=== PATIENT | male | born 1960 | race Caucasian/White ===

== ENCOUNTER 2017-02-07 06:55 | Emergency (ER) | payer BC, MEDICARE ==
--- NOTE | 2017-02-07 09:43 | EDM.PDOC ---
ED HPI GENERAL MEDICAL PROBLEM - General Chief Complaint: Neuro Symptoms/Deficits Stated Complaint: STROKE LIKE SYMPTOMS Time Seen by Provider: 02/07/17 07:15 Source of Information: Reports: Patient, Family History Limitations: Reports: No Limitations - History of Present Illness Onset: Today Onset Date: 02/07/17 Onset Time: 06:00 Duration: Constant Location: Reports: Upper Extremity, Left, Lower Extremity, Left Quality: Reports: Other (Weakness and numbness in the left arm and left leg.) Severity: Mild Improves with: Reports: Other (Lying down) Worsens with: Reports: Other (Getting up), Movement Context: Reports: Other (History of Marfan's syndrome, ascending aortic graft and stents in the rest of the aorta and femoral arteries.) Associated Symptoms: Reports: No Other Symptoms Treatments STUDENT OFFICER: Reports: Aspirin - Related Data Allergies Allergy/AdvReac Type Severity Reaction Status Date / Time No Known Allergies Allergy Verified 03/04/14 12:14 Home Meds: Home Meds Metoprolol Tartrate 250 mg PO BID 03/04/14 [History] Acetaminophen [Tylenol Extra Strength] 1,000 mg PO Q4H PRN 02/07/17 [History] Aspirin [Ecotrin] 325 mg PO DAILY 02/07/17 [History] Doxazosin [Cardura] 4 mg PO BID 02/07/17 [History] Hydrochlorothiazide [Hydrochlorothiazide] 25 mg PO BID 02/07/17 [History] Lisinopril [Lisinopril] 40 mg PO BIDMEALS 02/07/17 [History] Minoxidil [Loniten] 10 mg PO BID 02/07/17 [History] amLODIPine Besylate [Amlodipine Besylate] 10 mg PO DAILY 02/07/17 [History] cloNIDine [cloNIDine] 0.3 mg TRDERM WEEKLY 02/07/17 [History] ED ROS GENERAL - Review of Systems Review Of Systems: See Below Constitutional: Reports: Weakness, Other (Loss of balance, numbness and tingling in the left upper and lower extremities.) HEENT: Reports: No Symptoms Respiratory: Reports: No Symptoms Cardiovascular: Reports: Other (Atrial fibrillation.) Endocrine: Reports: No Symptoms GI/Abdominal: Reports: No Symptoms : Reports: No Symptoms Musculoskeletal: Reports: No Symptoms Skin: Reports: No Symptoms Neurological: Reports: Numbness, Tingling, Difficulty Walking, Weakness Psychiatric: Reports: No Symptoms Hematologic/Lymphatic: Reports: No Symptoms Immunologic: Reports: No Symptoms ED EXAM, NEURO - Physical Exam Exam: See Below Exam Limited By: No Limitations General Appearance: Alert, WD/WN, No Apparent Distress Eye Exam: Bilateral Eye: EOMI, Normal Fundi, Normal Inspection, PERRL, Vision Changes (No visual field deficits.) Ears: Normal External Exam, Normal Canal, Hearing Grossly Normal, Normal TMs Nose: Normal Inspection, Normal Mucosa, No Blood Throat/Mouth: Normal Inspection, Normal Lips, Normal Teeth, Normal Gums, Normal Oropharynx, Normal Voice, No Airway Compromise Head Exam: Atraumatic, Normocephalic Neck: Normal Inspection, Supple, Non-Tender, Full Range of Motion Respiratory/Chest: No Respiratory Distress Cardiovascular: Normal Peripheral Pulses, No Edema, No Gallop, No JVD, No Murmur , No Rub, Irregularly Irregular GI/Abdominal: Normal Bowel Sounds, Soft, Non-Tender, No Organomegaly, No Distention, No Abnormal Bruit, No Mass Neurological: Abnormal Gait (Weakness and imbalance in the left arm and leg.), Abnormal Light Touch (Left arm and leg), Straight Leg Raise (L) (Has difficulty with left straight leg raise), Difficulty Walking DTR: 2+: Patella (R), Patella (L) Back Exam: Normal Inspection, Full Range of Motion, NT Extremities: Normal Inspection, Normal Range of Motion, Non-Tender, No Pedal Edema, Normal Capillary Refill Psychiatric: Normal Affect, Normal Mood Skin Exam: Warm, Dry, Intact, Normal Color, No Rash EKG INTERPRETATION EKG Date: 02/07/17 Rhythm: A-Fib [place]: Normal P-Wave: Present QRS: Normal ST-T: Normal QT: Normal Comparison: No Change Course - Vital Signs Text/Narrative:: Patient had an uneventful ED course. His condition did not change. His CT showed no acute stroke but he had a 37 mm left temporal lobe lesion of unknown significance. He needs further evaluation in [place] with possible CT angiogram and further neuro evaluation and possible interventional radiologic treatment. Dr. Gifford has accepted him in transport to [facility] and he will be transported by [employer]. - Orders/Labs/Meds Orders: Active Orders 24 hr Category Date Time Status EKG Documentation Completion [RC] ASDIRECTED Care 02/07/17 07:18 Active Head wo Cont [CT] Stat Exams 02/07/17 07:17 Taken Labs: Laboratory Tests 02/07/17 02/07/17 02/07/17 Range/Units 07:30 07:30 07:30 WBC 5.7 (4.0-11.0) K/uL RBC 3.92 L (4.50-6.50) M/uL Hgb 11.7 L (13.0-18.0) g/dL Hct 34.2 L (40.0-54.0) % MCV 87 (76-96) fL MCH 29.8 (27.0-32.0) pg MCHC 34.2 (31.0-35.0) g/dL RDW 13.2 (11.0-16.0) % Plt Count 173 (150-400) K/uL MPV 10.6 H (6.0-10.0) fL Neut % (Auto) 75.3 H (45.0-70.0) % Lymph % (Auto) 14.1 L (20.0-40.0) % [place] % (Auto) 6.2 (3.0-10.0) % Eos % (Auto) 4.2 (1.0-5.0) % Baso % (Auto) 0.2 (0.0-0.5) % Neut # (Auto) 4.29 (2.00-7.50) K/uL Lymph # (Auto) 0.80 L (1.50-4.00) K/uL [place] # (Auto) 0.35 (0.20-0.80) K/uL Eos # (Auto) 0.24 (0.04-0.40) K/uL Baso # (Auto) 0.01 L (0.02-0.10) K/uL PT 10.2 (9.0-11.5) sec INR 1.0 (1.0-3.5) Sodium 141 (136-145) mmol/L Potassium 4.3 (3.5-5.1) mmol/L Chloride 106 (98-107) mmol/L Carbon Dioxide 24.7 (21.0-32.0) mmol/L Anion Gap 14.6 (5.0-15.0) mmol/L BUN 33 H (8-26) mg/dL Creatinine 1.76 H (0.70-1.30) mg/dL Est Cr Clr Drug Dosing TNP Estimated GFR (MDRD) 40 L (>60) MLS/MIN BUN/Creatinine Ratio 18.8 (6-25) Glucose 112 H (74-100) mg/dL Calcium 8.8 (8.5-10.1) mg/dL Total Bilirubin 0.5 (0.0-1.0) mg/dL AST 10 L (15-37) U/L ALT 28 (12-78) U/L Alkaline Phosphatase 81 (46-116) U/L Troponin I < 0.017 (0.000-0.060) ng/mL Total Protein 7.9 (6.4-8.2) g/dL Albumin 3.9 (3.4-5.0) g/dL Globulin 4.0 (2.2-4.2) g/dL Albumin/Globulin Ratio 1.0 (0.8-2.0) Departure - Departure Time of Disposition: 09:50 Disposition: DC/Tfer to Acute Hospital 02 Condition: Fair Clinical Impression: CVA (cerebral vascular accident), TIA (transient ischemic attack) - Discharge Information Referrals: PCP,None [Primary Care Provider] - - My Orders Last 24 Hours: My Active Orders 02/07/17 07:17 Head wo Cont [CT] Stat 02/07/17 07:18 EKG Documentation Completion [RC] ASDIRECTED - Assessment/Plan Last 24 Hours: My Active Orders 02/07/17 07:17 Head wo Cont [CT] Stat 02/07/17 07:18 EKG Documentation Completion [RC] ASDIRECTED
--- NOTE | 2017-02-07 10:28 | CT ---
DATE OF SERVICE: 02/07/17 CLINICAL DATA: Dizziness and Loss of Balance UNENHANCED BRAIN CT Multislice acquisition through the brain without IV contrast was performed. No priors. There is diffuse cerebral atrophy. There is encephalomalacia involving the left temporal lobe, most likely related to prior trauma or prior infarct. There is also a mixed-density structure within this area of encephalomalacia that is partially calcified. Again, this is most likely related to prior trauma or infarct. An MRI scan is, however, recommended to further evaluate these findings. No acute abnormalities. No evidence of intracranial hemorrhage. No osseous abnormalities. IMPRESSION: Abnormal exam. See above. MRI scan is recommended. [id number] [facility]
== END 2017-02-07 09:54 ==
LOC: LB.ED 06:55
DX: I63.9 Cerebral infarction, unspecified (principal); G45.9 Transient cerebral ischemic attack, unspecified; Z79.82 Long term (current) use of aspirin; Z79.899 Other long term (current) drug therapy
CPT/HCPCS: 36415; 70450; 80053; 84484; 85025; 85610; 93005; 99285; A0425; A0429

== ENCOUNTER 2019-12-23 17:58 | Emergency (ER) | payer BC, MEDICARE ==
--- NOTE | 2019-12-23 21:00 | EDM.PDOC ---
ED HPI GENERAL MEDICAL PROBLEM - General Chief Complaint: General Stated Complaint: HYPERTENSION Time Seen by Provider: 12/23/19 18:45 Source of Information: Reports: Patient, Family History Limitations: Reports: No Limitations - History of Present Illness INITIAL COMMENTS - FREE TEXT/NARRATIVE: Patient DC from [facility] 4 days ago after aortic conduit repair/replacement surgery. He presents today d/t BP at home 168/160, and he was instructed to go to ED if systolic BP was above 140. He had taken his dose of evening BP meds and BP decreased to 151/53. Patient has left rib pain due to surgery. Denies fevers, SOB, CP, cough, N/V/D. 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: Reports: Other (see below) (BP medication) - Related Data Allergies Allergy/AdvReac Type Severity Reaction Status Date / Time morphine Allergy Other Verified 12/23/19 18:04 Home Meds: Home Meds Metoprolol Tartrate 250 mg PO BID 03/04/14 [History] Acetaminophen [Tylenol Extra Strength] 1,000 mg PO Q4H PRN 02/07/17 [History] Aspirin [Ecotrin] 325 mg PO DAILY 02/07/17 [History] Doxazosin [Cardura] 4 mg PO BID 02/07/17 [History] Lisinopril 40 mg PO BIDMEALS 02/07/17 [History] amLODIPine Besylate [Amlodipine Besylate] 10 mg PO DAILY 02/07/17 [History] cloNIDine 0.3 mg TRDERM WEEKLY 02/07/17 [History] hydroCHLOROthiazide [Hydrochlorothiazide] 25 mg PO BID 02/07/17 [History] minoxidiL [Loniten] 10 mg PO BID 02/07/17 [History] Past Medical History HEENT History: Reports: Cataract, Impaired Vision Cardiovascular History: Reports: Aneurysm, Heart Valve Replacement, Hypertension, Other (See Below) Other Cardiovascular History: Hx Marfan syndrome; Aortic dissection; Aortic stenosis; Venous insufficiency, Aorta graph Respiratory History: Reports: Other (See Below) Other Respiratory History: NOLBERTO treated with CiPap, thoracotomy Genitourinary History: Reports: Chronic Renal Insuffiency - Past Surgical History Cardiovascular Surgical History: Reports: AAA Repair, Aneurysm Musculoskeletal Surgical History: Reports: Other (See Below) Other Musculoskeletal Surgeries/Procedures:: Marfans syndrome Social & Family History - Tobacco Use Smoking Status *Q: Former Smoker Used Tobacco, but Quit: No - Recreational Drug Use Recreational Drug Use: No ED ROS GENERAL - Review of Systems Review Of Systems: See Below Constitutional: Reports: No Symptoms HEENT: Reports: No Symptoms Respiratory: Reports: No Symptoms Cardiovascular: Reports: No Symptoms Endocrine: Reports: No Symptoms GI/Abdominal: Reports: No Symptoms : Reports: No Symptoms Musculoskeletal: Reports: No Symptoms Skin: Reports: Wound (large surgical incision from anterior abdomen to posterior chest, 3 left flank incisions from chest tube) Neurological: Reports: No Symptoms Psychiatric: Reports: No Symptoms Hematologic/Lymphatic: Reports: Easy Bleeding (coumadin) ED EXAM, GENERAL - Physical Exam Exam: See Below Exam Limited By: No Limitations General Appearance: Alert, No Apparent Distress Ears: Normal External Exam Head: Atraumatic Neck: Normal Inspection, Non-Tender, Full Range of Motion. No: Lymphadenopathy (R), Lymphadenopathy (L) Respiratory/Chest: No Respiratory Distress, Lungs Clear, Normal Breath Sounds, No Accessory Muscle Use, Chest Non-Tender. No: Crackles, Rales, Wheezing Cardiovascular: Normal Peripheral Pulses, No Edema, No JVD, Systolic Murmur, Other (afib) Peripheral Pulses: 3+: Carotid (L), Carotid (R), Radial (L), Radial (R), Posterior Tibial (L), Posterior Tibial (R), Dorsalis Pedis (L), Dorsalis Pedis (R) GI/Abdominal: Normal Bowel Sounds, Soft, Non-Tender Back Exam: Normal Inspection Extremities: Normal Inspection, Normal Range of Motion, No Pedal Edema, Normal Capillary Refill Neurological: Alert, Oriented, Normal Gait, Normal Reflexes, No Motor/Sensory Deficits Psychiatric: Normal Affect, Normal Mood Skin Exam: Warm, Dry, Normal Color, Wound/Incision Lymphatic: No Adenopathy (some incisional drainage noted periumbilical area, culture obtained. We removed foam padding surrounding large healing incision, several blisters were uncovered, they were cleansed and dressings applied.) Course - Vital Signs Last Recorded V/S: Last Vital Signs Temp 98.4 F 12/23/19 18:41 Pulse 66 12/23/19 19:09 Resp 20 12/23/19 18:41 BP 121/46 L 12/23/19 19:09 Pulse Ox 97 12/23/19 18:41 - Orders/Labs/Meds Orders: Active Orders 24 hr Category Date Time Status Chest 1V Frontal [CR] Stat Exams 12/23/19 19:06 Taken CULTURE BLOOD [BC] Stat Lab 12/23/19 20:00 Ordered CULTURE WOUND + SMEAR [RM] Stat Lab 12/23/19 20:00 Ordered Labs: Laboratory Tests 12/23/19 12/23/19 12/23/19 Range/Units 19:06 19:06 19:15 WBC 7.8 D (4.0-11.0) K/uL RBC 3.13 L (4.50-6.50) M/uL Hgb 9.1 L D (13.0-18.0) g/dL Hct 28.7 L (40.0-54.0) % MCV 92 (76-96) fL MCH 29.1 (27.0-32.0) pg MCHC 31.7 (31.0-35.0) g/dL RDW 14.9 (11.0-16.0) % Plt Count 321 D (150-400) K/uL MPV 10.5 H (6.0-10.0) fL Neut % (Auto) 75.5 H (45.0-70.0) % Lymph % (Auto) 12.2 L (20.0-40.0) % [place] % (Auto) 8.4 (3.0-10.0) % Eos % (Auto) 3.3 (1.0-5.0) % Baso % (Auto) 0.6 H (0.0-0.5) % Neut # (Auto) 5.91 (2.00-7.50) K/uL Lymph # (Auto) 0.96 L (1.50-4.00) K/uL [place] # (Auto) 0.66 (0.20-0.80) K/uL Eos # (Auto) 0.26 (0.04-0.40) K/uL Baso # (Auto) 0.05 (0.02-0.10) K/uL PT 36.5 H D (9.0-11.5) sec INR 3.6 H D (1.0-3.5) Sodium 140 (136-145) mmol/L Potassium 4.2 (3.5-5.1) mmol/L Chloride 101 (98-107) mmol/L Carbon Dioxide 28.1 (21.0-32.0) mmol/L Anion Gap 15.1 H (5.0-15.0) mmol/L BUN 18 D (8-26) mg/dL Creatinine 1.32 H D (0.70-1.30) mg/dL Est Cr Clr Drug Dosing TNP Estimated GFR (MDRD) 56 L (>60) MLS/MIN BUN/Creatinine Ratio 13.6 (6-25) Glucose 115 H (74-100) mg/dL Calcium 8.5 (8.5-10.1) mg/dL Total Bilirubin 0.7 D (0.0-1.0) mg/dL AST 64 H (15-37) U/L ALT 93 H (12-78) U/L Alkaline Phosphatase 123 H (46-116) U/L Total Protein 6.5 (6.4-8.2) g/dL Albumin 2.8 L (3.4-5.0) g/dL Globulin 3.7 (2.2-4.2) g/dL Albumin/Globulin Ratio 0.8 (0.8-2.0) Departure - Departure Time of Disposition: 21:00 Disposition: Home, Self-Care 01 Condition: Good Clinical Impression: Dressing change or removal, surgical wound Hypertension Qualifiers: Hypertension type: unspecified Qualified Code(s): I10 - Essential (primary) hypertension - Discharge Information *PRESCRIPTION DRUG MONITORING PROGRAM REVIEWED*: Not Applicable *COPY OF PRESCRIPTION DRUG MONITORING REPORT IN PATIENT JUAN M: Not Applicable Instructions: Hypertension, Adult Referrals: PCP,None [Primary Care Provider] - Forms: ED Department Discharge Additional Instructions: Spoke with Dr. Vaca cardiology at [place], she states that she is not concerned with your systolic BP, she would like you to monitor your MAP and maintain between 75-85. She is also not concerned about your CXR or liver enzymes. Continue yout current medications as prescribed, use your incentive spirometer as discussed. Please call your assembly press operator and discuss your concerns about your BP's. Return to ED for any increased or new concerning symptoms. Sepsis Event Note (ED) - Evaluation Sepsis Screening Result: No Definite Risk - Focused Exam Vital Signs: Vital Signs Temp Pulse Resp BP Pulse Ox 12/23/19 19:09 66 121/46 L 09/19/20 18:41 98.4 F 69 20 166/67 H 97 - My Orders Last 24 Hours: My Active Orders 12/23/19 19:06 Chest 1V Frontal [CR] Stat 12/23/19 20:00 CULTURE BLOOD [BC] Stat CULTURE WOUND + SMEAR [RM] Stat - Assessment/Plan Last 24 Hours: My Active Orders 12/23/19 19:06 Chest 1V Frontal [CR] Stat 12/23/19 20:00 CULTURE BLOOD [BC] Stat CULTURE WOUND + SMEAR [RM] Stat Plan: Spoke with [phone] spoke with her about findings in the ED. She remembered the patient well and was not concerned with the BP's I reported to her, she would like him to monitor his MAP and keep it 75-85, his daughter is an ER nurse is present and states that the BP monitor he has at home measures MAP. We discussed the CXR and whether or not she thinks that prophylactic ABX would be necessary with a "hazy opacification lateral left mid lung, nonspecific, infiltrate vs. shadowding", again she is not concerned and would like patient to continue use of IS at home, patient agrees to this. Patient had elevated liver enzymes and Dr. Vaca was not concerned with these levels. Patient will continue on medications as prescribed and follow up with his assembly press operator Wednesday. He verbalized understanding of DC instructions and all questions were answered prior to DC. DDX: pneumonia, skin infection, stroke.
--- NOTE | 2019-12-24 10:06 | CR ---
Date of Service: 12/23/19 Clinical Data: htn, post aortic surgery AP CHEST: Comparison is made to a prior exam dated 05/21/14. There is breathing motion artifact. The patient is status post median sternotomy and heart valve replacement. The heart size is normal. There are surgical changes involving the aortic arch. The pulmonary vasculature appears prominent proximally suggesting pulmonary hypertension. There is increased density in the left lung base medially consistent with infiltrate or atelectasis. Pneumonia should be considered. No pneumothorax. No pleural effusion. [id number] [facility]
== END 2019-12-23 21:10 | disposition home or self-care (01) ==
LOC: LB.ED 17:58
DX: Z48.01 Encounter for change or removal of surgical wound dressing (principal); I12.9 Hypertensive chronic kidney disease with stage 1 through stage 4 chronic kidney disease, or unspecified chronic kidney disease; N18.9 Chronic kidney disease, unspecified; Z88.5 Allergy status to narcotic agent; Z79.899 Other long term (current) drug therapy; Z79.82 Long term (current) use of aspirin; Z87.891 Personal history of nicotine dependence
CPT/HCPCS: 36415; 71045; 80053; 85025; 85610; 87070; 87186; 87205; 93005; 99283; 99284-25

== ENCOUNTER 2019-12-25 08:16 | Emergency (ER) | payer BC, MEDICARE ==
--- NOTE | 2019-12-25 08:55 | EDM.PDOC ---
ED HPI GENERAL MEDICAL PROBLEM - General Stated Complaint: SKIN INFECTION Time Seen by Provider: 12/25/19 08:35 Source of Information: Reports: Patient History Limitations: Reports: No Limitations - History of Present Illness INITIAL COMMENTS - FREE TEXT/NARRATIVE: Patient in ED over thr weekend with HTN, now has increased drainage from abdominal surgical site. Severity: Mild Improves with: Reports: None Worsens with: Reports: None Associated Symptoms: Reports: No Other Symptoms - Related Data Allergies Allergy/AdvReac Type Severity Reaction Status Date / Time morphine Allergy Other Verified 12/23/19 18:04 Home Meds: Home Meds Metoprolol Tartrate 250 mg PO BID 03/04/14 [History] Acetaminophen [Tylenol Extra Strength] 1,000 mg PO Q4H PRN 02/07/17 [History] Aspirin [Ecotrin] 325 mg PO DAILY 02/07/17 [History] Doxazosin [Cardura] 4 mg PO BID 02/07/17 [History] Lisinopril 40 mg PO BIDMEALS 02/07/17 [History] amLODIPine Besylate [Amlodipine Besylate] 10 mg PO DAILY 02/07/17 [History] cloNIDine 0.3 mg TRDERM WEEKLY 02/07/17 [History] hydroCHLOROthiazide [Hydrochlorothiazide] 25 mg PO BID 02/07/17 [History] minoxidiL [Loniten] 10 mg PO BID 02/07/17 [History] Doxycycline [Vibra-Tabs] 100 mg PO Q12HR 14 Days #28 tab 12/25/19 [Rx] Past Medical History HEENT History: Reports: Cataract, Impaired Vision Cardiovascular History: Reports: Aneurysm, Heart Valve Replacement, Hypertension, Other (See Below) Other Cardiovascular History: Hx Marfan syndrome; Aortic dissection; Aortic stenosis; Venous insufficiency, Aorta graph Respiratory History: Reports: Other (See Below) Other Respiratory History: NOLBERTO treated with CiPap, thoracotomy Genitourinary History: Reports: Chronic Renal Insuffiency - Past Surgical History Cardiovascular Surgical History: Reports: AAA Repair, Aneurysm Musculoskeletal Surgical History: Reports: Other (See Below) Other Musculoskeletal Surgeries/Procedures:: Marfans syndrome ED ROS GENERAL - Review of Systems Review Of Systems: See Below Constitutional: Reports: No Symptoms HEENT: Reports: No Symptoms Respiratory: Reports: No Symptoms Cardiovascular: Reports: No Symptoms GI/Abdominal: Reports: No Symptoms : Reports: No Symptoms Musculoskeletal: Reports: No Symptoms Skin: Reports: Wound Neurological: Reports: No Symptoms Psychiatric: Reports: No Symptoms ED EXAM, SKIN/RASH Exam: See Below Exam Limited By: No Limitations General Appearance: Alert, No Apparent Distress Head: Atraumatic Neck: Normal Inspection, Full Range of Motion Respiratory/Chest: No Respiratory Distress, Lungs Clear, Normal Breath Sounds Cardiovascular: Regular Rate, Rhythm, No Edema, No JVD, Systolic Murmur GI/Abdominal: Normal Bowel Sounds, Non-Tender (Male) Exam: Deferred Rectal (Males) Exam: Deferred Back Exam: Normal Inspection, Full Range of Motion Extremities: Normal Inspection, Normal Range of Motion Neurological: Alert, Oriented, Normal Gait, No Motor/Sensory Deficits Psychiatric: Normal Affect, Normal Mood Skin: Warm, Dry, Wound/Incision Location, Skin: Abdomen, Axillary, Other Characteristics: Bullous Associated features: Weeping Lymphatic: No Adenopathy Front/Back Body Diagram: 1 - 4 intact bullous areas 2 - 1 cm draining clear yellow fluid with some pus at surgical incision 3 - 1.9cm gape in surgical incision, no drainage noted, no signs of infection at this time Departure - Departure Time of Disposition: 10:05 Disposition: Home, Self-Care 01 Clinical Impression: Dressing change or removal, surgical wound, Wound infection after surgery - Discharge Information *PRESCRIPTION DRUG MONITORING PROGRAM REVIEWED*: Not Applicable *COPY OF PRESCRIPTION DRUG MONITORING REPORT IN PATIENT JUAN M: Not Applicable Prescriptions: Doxycycline [Vibra-Tabs] 100 mg PO Q12HR 14 Days #28 tab Instructions: Wound Infection, [id number], How to Change Your Wound Dressing, [id number] Referrals: PCP,None [Primary Care Provider] - - Problem List Review Problem List Initiated/Reviewed/Updated: Yes - Assessment/Plan Plan: Wounds cleansed and dressed. Patient and instructed while dressing wounds how to redress. Verbalized understanding.
--- NOTE | 2019-12-25 10:18 | EDM.PDOC ---
ED HPI GENERAL MEDICAL PROBLEM - General Stated Complaint: SKIN INFECTION Time Seen by Provider: 12/25/19 08:35 Source of Information: Reports: Patient History Limitations: Reports: No Limitations - History of Present Illness INITIAL COMMENTS - FREE TEXT/NARRATIVE: Patient in ED over thr weekend with HTN, now has increased drainage from abdominal surgical site. Severity: Mild Improves with: Reports: None Worsens with: Reports: None Associated Symptoms: Reports: No Other Symptoms - Related Data Allergies Allergy/AdvReac Type Severity Reaction Status Date / Time morphine Allergy Other Verified 12/23/19 18:04 Home Meds: Home Meds Metoprolol Tartrate 250 mg PO BID 03/04/14 [History] Acetaminophen [Tylenol Extra Strength] 1,000 mg PO Q4H PRN 02/07/17 [History] Aspirin [Ecotrin] 325 mg PO DAILY 02/07/17 [History] Doxazosin [Cardura] 4 mg PO BID 02/07/17 [History] Lisinopril 40 mg PO BIDMEALS 02/07/17 [History] amLODIPine Besylate [Amlodipine Besylate] 10 mg PO DAILY 02/07/17 [History] cloNIDine 0.3 mg TRDERM WEEKLY 02/07/17 [History] hydroCHLOROthiazide [Hydrochlorothiazide] 25 mg PO BID 02/07/17 [History] minoxidiL [Loniten] 10 mg PO BID 02/07/17 [History] Doxycycline [Vibra-Tabs] 100 mg PO Q12HR 14 Days #28 tab 12/25/19 [Rx] oxyCODONE 5 mg PO Q6HR #15 tab 12/25/19 [Rx] Past Medical History HEENT History: Reports: Cataract, Impaired Vision Cardiovascular History: Reports: Aneurysm, Heart Valve Replacement, Hypertension, Other (See Below) Other Cardiovascular History: Hx Marfan syndrome; Aortic dissection; Aortic s tenosis; Venous insufficiency, Aorta graph Respiratory History: Reports: Other (See Below) Other Respiratory History: NOLBERTO treated with CiPap, thoracotomy Genitourinary History: Reports: Chronic Renal Insuffiency - Past Surgical History Cardiovascular Surgical History: Reports: AAA Repair, Aneurysm Musculoskeletal Surgical History: Reports: Other (See Below) Other Musculoskeletal Surgeries/Procedures:: Marfans syndrome ED ROS GENERAL - Review of Systems Review Of Systems: See Below ED EXAM, SKIN/RASH Exam: See Below Departure - Departure Time of Disposition: 10:22 Disposition: Home, Self-Care 01 Clinical Impression: Dressing change or removal, surgical wound, Wound infection after surgery - Discharge Information *PRESCRIPTION DRUG MONITORING PROGRAM REVIEWED*: Not Applicable *COPY OF PRESCRIPTION DRUG MONITORING REPORT IN PATIENT JUAN M: Not Applicable Prescriptions: oxyCODONE 5 mg PO Q6HR #15 tab Doxycycline [Vibra-Tabs] 100 mg PO Q12HR 14 Days #28 tab Instructions: Wound Infection, [id number], How to Change Your Wound Dressing, [id number] Referrals: PCP,None [Primary Care Provider] -
== END 2019-12-25 10:07 | disposition home or self-care (01) ==
LOC: LB.ED 08:16
DX: T81.49XA Infection following a procedure, other surgical site, initial encounter (principal); I10 Essential (primary) hypertension; Z88.5 Allergy status to narcotic agent; Z79.82 Long term (current) use of aspirin; Z79.899 Other long term (current) drug therapy
CPT/HCPCS: 99282; 99283

== ENCOUNTER 2021-09-14 11:24 | Emergency (ER) | payer BC, MEDICARE ==
[2021-09-14] MEDS ORDERED: Phytonadione 5 MG Tab ONE (12:00)
[2021-09-14 12:53] LABS: ESTIMATED GFR 43 MLS/MIN (>60)
== END 2021-09-14 13:25 | disposition home or self-care (01) ==
LOC: LB.ED 11:24
DX: S80.12XA Contusion of left lower leg, initial encounter (principal); I10 Essential (primary) hypertension; Z79.899 Other long term (current) drug therapy; Z79.82 Long term (current) use of aspirin; Z88.6 Allergy status to analgesic agent; X58.XXXA Exposure to other specified factors, initial encounter
CPT/HCPCS: 36415; 80048; 85025; 85610; 99282; 99283; A9270-GY